=== PATIENT | male | born 1955 | race Caucasian/White ===

== ENCOUNTER 2019-02-28 15:39 | Emergency (ER) | payer OTHER ==
[~2019-02-28] VITALS: Ht 175.3 cm; Wt 79.0 kg
[2019-02-28] MEDS ORDERED: AMLO10TA8 PO (15:56)
--- NOTE | 2019-02-28 15:57 | NUR ---
PT TO ED FOR RECURRING ROBLERO. NO ROBLERO AT THIS TIME. PT STATES HAS HAD ROBLERO 3 TIMES AND PCP TOLD HIM TO COME TO ED IF ROBLERO RETURNED. PT CONNECTED TO MONITORS. ROSA. KAYA FUNEZ, TO BS FOR ASSESSMENT. AWAITING ORDRES.
--- NOTE | 2019-02-28 16:10 | NUR ---
LABS DRAWN. PT TO CT AT THIS TIME. AWAITING RESULTS.
--- NOTE | 2019-02-28 16:16 | NUR ---
PT BACK FROM CT.
[2019-02-28 16:18] LABS: BASOPHILS # (AUTO) 0.08 x10^3/uL (0-0.1); BASOPHILS % (AUTO) 1 % (0-1); EOSINOPHILS # (AUTO) 0.12 x10^3/uL (0-0.4); EOSINOPHILS % (AUTO) 1 % (1-7); HCT (SEDRATE) 42.3 % (39.2-51.8); LYMPHOCYTES # (AUTO) 1.51 x10^3/uL (1-3.4); LYMPHOCYTES % (AUTO) 15 % (22-44); MD NO; MEAN CORPUSCULAR HEMOGLOBIN 29.7 pg (27.5-34.5); MEAN CORPUSCULAR HGB CONC 32.5 g/dL (33.2-36.2); MEAN CORPUSCULAR VOLUME 91.2 fL (81-97); MEAN PLATELET VOLUME 8.1 fL (7.4-10.4); MONOCYTES # (AUTO) 0.94 x10^3/uL (0.2-0.8); MONOCYTES % (AUTO) 9 % (2-9); NEUTROPHILS % (AUTO) 74 % (42-75); PLATELET COUNT 294 x10^3/uL (130-400); RED BLOOD COUNT 4.68 x10^6/uL (4.38-5.82); RED CELL DISTRIBUTION WIDTH 13.8 % (9.4-14.8)
[2019-02-28 16:30] LABS: ALBUMIN 3.7 g/dL (3.4-5.0); ANION GAP 6 mmol/L (5-15); CHLORIDE 107 mmol/L (98-107)
[2019-02-28 16:32] LABS: CREATININE 0.88 mg/dL (0.7-1.3)
--- NOTE | 2019-02-28 17:43 | NUR ---
NEW ORDERS RECEIVED FOR CTA. PIV ESTABLISHED. VSS. NO NEEDS EXPRESSED. CALL LIGHT WITHIN REACH. AWAITING CTA.
--- NOTE | 2019-02-28 18:18 | NUR ---
PT TO CT.
--- NOTE | 2019-02-28 18:34 | NUR ---
PT BACK FROM CT.
[2019-02-28 18:41] VITALS: BP 136/82
--- NOTE | 2019-02-28 18:43 | NUR ---
PT RESTING IN ROOM WITH AT BS. VSS. NO NEEDS EXPRESSED. CALL LIGHT WITHIN REACH. AWAITING CTA RESULTS.
[2019-02-28] MEDS ORDERED: OMNIPAQUE 350 MG/ML, 100ML BOTTLE ONE (18:49)
--- NOTE | 2019-02-28 19:11 | NUR ---
ALL RESULTS BACK AT THIS TIME. CHART UP FOR RECHECK.
== END 2019-02-28 20:13 | disposition home or self-care (01) ==
LOC: ED 19:45
DX: G43.C0 Periodic headache syndromes in child or adult, not intractable (principal); I10 Essential (primary) hypertension
CPT/HCPCS: 36415; 70450; 70496; 80048; 82040; 85025; 85651; 99284; Q9967

== ENCOUNTER 2020-05-09 05:53 | Day surgery (SDC) | payer BC, OTHER ==
[~2020-05-09] VITALS: Ht 175.3 cm; Wt 78.7 kg
[~2020-05-09 05:53] MED LIST: AMLO-211 PO; DOXE6TAB3 PO
[2020-05-09 06:17] VITALS: BP 139/85
[2020-05-09] MEDS ORDERED: CHLORHEXIDINE 15 ML UDC ONE (06:22)
[2020-05-09] MEDS ORDERED: LACTATED RINGERS 1,000 ML IV SCH (06:30)
[2020-05-09] MEDS ORDERED: CHLORHEXIDINE 15 ML UDC MM ONE (06:30)
[2020-05-09] MEDS ORDERED: LIDOCAINE/PF 1%, 30ML ONE (06:53)
[2020-05-09] MEDS ORDERED: EPINEPHRINE 1 MG/ML, 1ML ONE (06:53)
[2020-05-09] MEDS ORDERED: FENTANYL PF 100 MCG/2ML ONE ×2 (07:10→08:54)
[2020-05-09] MEDS ORDERED: PROPOFOL 50 ML ONE (07:10)
[2020-05-09] MEDS ORDERED: MIDAZOLAM 1 MG/ML, 2ML ONE (07:10)
[2020-05-09] MEDS ORDERED: SUGAMMADEX 200 MG/2 ML IVPush ONE (07:15)
[2020-05-09] MEDS ORDERED: DEXAMETHASONE 4 MG/ML, 5ML ONE (07:15)
[2020-05-09] MEDS ORDERED: ROCURONIUM 10 MG/ML,10ML ONE (07:15)
[2020-05-09] MEDS ORDERED: LIDOCAINE 1%-EPI 1:100K, 30ML INFIL ONE (07:32)
[2020-05-09] MEDS ORDERED: PROMETHAZINE 25 MG/ML, 1ML IVPush PRN (08:00)
[2020-05-09] MEDS ORDERED: MEPERIDINE/PF 25MG/0.5ML IVPush PRN (08:00)
[2020-05-09] MEDS ORDERED: ACETAMINOPHEN 325 MG TABLET PO PRN (08:00)
[2020-05-09] MEDS ORDERED: DIPHENHYDRAMINE 50 MG/ML, 1ML IVPush PRN (08:00)
[2020-05-09] MEDS ORDERED: DIAZEPAM 5 MG/ML, 2ML IVPush PRN (08:00)
[2020-05-09] MEDS ORDERED: ONDANSETRON 2MG/ML, 2ML IVPush PRN (08:00)
[2020-05-09] MEDS ORDERED: HYDROmorphone 1 MG/ML, 1ML INJ IVPush PRN (08:00)
[2020-05-09] MEDS ORDERED: OXYcodone 5 MG/5 ML ORAL.SOL UDC PO PRN (08:00)
[2020-05-09] MEDS ORDERED: LABETALOL 5MG/ML, 20ML IV PRN (08:00)
[2020-05-09] MEDS: hydrALAzine 20 MG/ML, 1ML IV PRN ×2 (08:29→08:44)
[2020-05-09] MEDS ORDERED: hydrALAzine 20 MG/ML, 1ML ONE (08:30)
[2020-05-09] MEDS ORDERED: OXYcodone 5 MG/5 ML ORAL.SOL UDC ONE (08:54)
[2020-05-09] MEDS: FENTANYL PF 100 MCG/2ML IV PRN ×2 (08:55→09:00)
== END 2020-05-09 10:40 | disposition home or self-care (01) ==
LOC: OUT 05:53
PROVIDERS: ATTEND Otolaryngology
DX: J38.3 Other diseases of vocal cords (principal); I10 Essential (primary) hypertension; Z20.822 Contact with and (suspected) exposure to COVID-19; Z79.899 Other long term (current) drug therapy; Z88.0 Allergy status to penicillin; Z98.890 Other specified postprocedural states
CPT/HCPCS: 31541; 87635; 88305; 88331; 93005; J0171; J0360; J1100; J2250; J2704; J3010; J7120